=== PATIENT | female | born 1985 ===

== ENCOUNTER 2016-12-31 09:54 | Emergency (ER) | payer OTHER ==
[2016-12-31 10:22] VITALS: BMI 28.3
--- NOTE | 2016-12-31 10:34 | ED PDOC ---
Arrival/HPI - General Historian: Patient - General Chief Complaint: Abdominal Pain Time Seen by Provider: 12/31/16 10:29 - History of Present Illness Narrative History of Present Illness (Text): 12/31/16 10:30 31 y/o female, pmh including pylonephritis, nkda, c/o epigastric abdominal pain x 3-4 days. Aching and burning pain, feels nauseous, last bowel movement was this morning, no vomiting, pain radiating to the rt. upper quadrant region, no night sweat, no urinary symptoms, no hematuria, no dizziness, no chest pain or shortness of breath, no other medical or psychological complaints. (Sanford Negrete) Past Medical History - Provider Review Nursing Documentation Reviewed: Yes - Infectious Disease Hx of Infectious Diseases: None - Tetanus Immunization Tetanus Immunization: Unknown - Cardiac Hx Cardiac Disorders: No - Pulmonary Hx Respiratory Disorders: No - Neurological Hx Neurological Disorder: No - HEENT Hx HEENT Disorder: No - Renal Hx Renal Disorder: Yes Hx Kidney Stones: Yes - Endocrine/Metabolic Hx Endocrine Disorders: No - Hematological/Oncological Hx Blood Disorders: No - Integumentary Hx Dermatological Disorder: No - Musculoskeletal/Rheumatological Hx Musculoskeletal Disorders: No - Gastrointestinal Hx Gastrointestinal Disorders: No - Genitourinary/Gynecological Hx Genitourinary Disorders: Yes Hx Urinary Tract Infection: Yes Other/Comment: Kidney Infection 3 years ago - Psychiatric Hx Psychophysiologic Disorder: No Hx Depression: No Hx Emotional Abuse: No Hx Physical Abuse: No Hx Substance Use: No - Past Surgical History Past Surgical History: No Previous - Surgical History Hx Tubal Ligation: Yes - Suicidal Assessment Feels Threatened In Home Enviroment: No Family/Social History - Physician Review Nursing Documentation Reviewed: Yes Family/Social History: Unknown Family HX Smoking Status: Never Smoked Hx Alcohol Use: No (social) Hx Substance Use: No Hx Substance Use Treatment: No Allergies/Home Meds Allergies/Adverse Reactions: Allergies No Known Allergies Allergy (Verified 06/12/16 17:01) Home Medications: Home Meds Medication Instructions Recorded Confirmed Hyoscyamine [Hyoscyamine Sulfate] 0.125 mg PO Q4H 12/31/16 12/31/16 Review of Systems - Review of Systems Constitutional: absent: Fatigue, Fevers Eyes: absent: Vision Changes ENT: absent: Hearing Changes Respiratory: absent: SOB, Cough Cardiovascular: absent: Chest Pain Gastrointestinal: Abdominal Pain, Nausea. absent: Diarrhea, Vomiting Musculoskeletal: absent: Arthralgias, Back Pain, Neck Pain, Joint Swelling, Myalgias Neurological: absent: Headache, Dizziness, Focal Weakness Psychiatric: absent: Anxiety, Depression, Suicidal Ideation Physical Exam Vital Signs Reviewed: Yes Temperature: Afebrile Blood Pressure: Normal Pulse: Regular Respiratory Rate: Normal Appearance: Positive for: Well-Appearing, Non-Toxic, Comfortable Pain Distress: Moderate Mental Status: Positive for: Alert and Oriented X 3 - Systems Exam Head: Present: Atraumatic, Normocephalic Pupils: Present: PERRL Extroacular Muscles: Present: EOMI Conjunctiva: Present: Normal Mouth: Present: Moist Mucous Membranes Neck: Present: Normal Range of Motion Respiratory/Chest: Present: Clear to Auscultation, Good Air Exchange. No: Respiratory Distress, Accessory Muscle Use Cardiovascular: Present: Regular Rate and Rhythm, Normal S1, S2. No: Murmurs Abdomen: Present: Tenderness (+epigastric tenderness, no cva tenderness), Normal Bowel Sounds. No: Distention, Peritoneal Signs Back: Present: Normal Inspection Upper Extremity: Present: Normal Inspection. No: Cyanosis, Edema Lower Extremity: Present: Normal Inspection. No: Edema Neurological: Present: GCS=15, Speech Normal, Motor Func Grossly Intact, Gait Normal, Memory Normal Skin: Present: Warm, Dry, Normal Color. No: Rashes Psychiatric: Present: Alert, Oriented x 3, Normal Insight, Normal Concentration Vital Signs Temp Pulse Resp BP Pulse Ox 12/31/16 10:21 98.4 F 65 20 137/92 H 100 Medical Decision Making - Lab Interpretations I have reviewed the lab results: Yes Interpretation: Abnormal lab values (+UTI) ED Course and Treatment: I was available for consultation during PA evaluation. The chart reviewed by me , and I agree with disposition. The documented history was done by the physician engineering project manager. The documented physical exam was done by the physician engineering project manager. The documented procedures were done by the physician engineering project manager. (Nadeem Powers) 12/31/16 10:38 -labs/ua/lipase -Abdominal sonogram performed 4 days ago show there is fatty liver with no gallstone or renal stone. -IVF/pepcid/zofran -Observe and reassess 12/31/16 12:41 -Labs are non-significant -Urinalysis show +UTI, IV rocephine ordered. -Pt. feels comfortable and better. -Discharge home with keflex, pepcid, zofran, stay hydrated, follow up with your own pmd and urologist within 2 days, return to the ER for any new or worsening signs or symptoms. (Sanford Negrete) - Lab Interpretations Lab Results: 12/31/16 11:30 12/31/16 11:30 Lab Results 12/31/16 11:30: Urine Color Yellow, Urine Appearance Sl cloudy, Urine pH 6.0, Ur Specific [place] 1.025, Urine Protein Negative, Urine Glucose (UA) Negative, Urine Ketones Negative, Urine Blood Negative, Urine Nitrate Negative, Urine Bilirubin Negative, Urine Urobilinogen 0.2, Ur Leukocyte Esterase Moderate H, Urine RBC Negative, Urine WBC 5 - 10, Ur Epithelial Cells 10 - 12, Urine Bacteria Few 12/31/16 11:30: Sodium 141, Potassium 4.0, Chloride 106, Carbon Dioxide 28, Anion Gap 11, BUN 12, Creatinine 0.6, Est GFR ( Amer) > 60, Est GFR (Non- Af Amer) > 60, Random Glucose 97, Calcium 9.3, Total Bilirubin 1.0, AST 36, ALT 44, Alkaline Phosphatase 72, Total Protein 7.9, Albumin 4.5, Globulin 3.5, Albumin/Globulin Ratio 1.3, Lipase 78 12/31/16 11:30: WBC 6.3, RBC 4.30, Hgb 13.4, Hct 38.3, MCV 89.1, MCH 31.2, MCHC 35.0, RDW 12.8, Plt Count 257, MPV 10.8, Gran % 57.0, Lymph % (Auto) 31.8, [place] % (Auto) 6.1 H, Eos % (Auto) 4.5, Baso % (Auto) 0.6, Gran # 3.58, Lymph # 2.0, [place] # 0.4, Eos # 0.3, Baso # 0.04 - Medication Orders Current Medication Orders: Ceftriaxone Sodium (Rocephin 1 Gram Ivpb) 1 gm in 100 mls @ 200 mls/hr IVPB STAT STA PRN Reason: Protocol Stop: 12/31/16 13:05 Discontinued Medications Famotidine (Pepcid) 20 mg IVP STAT STA Stop: 12/31/16 10:36 Last Admin: 12/31/16 11:20 Dose: 20 mg Sodium Chloride (Sodium Chloride 0.9%) 1,000 mls @ 999 mls/hr IV .Q1H1M STA Stop: 12/31/16 11:35 Last Admin: 12/31/16 11:00 Dose: 999 mls/hr Ondansetron HCl (Zofran Inj) 4 mg IVP STAT STA Stop: 12/31/16 10:36 Last Admin: 12/31/16 11:15 Dose: 4 mg - PA / RADIO MAINTAINER / Resident Statement /DO has reviewed & agrees with the documentation as recorded. Disposition/Present on Arrival - Present on Arrival Any Indicators Present on Arrival: No History of DVT/PE: No History of Uncontrolled Diabetes: No Urinary Catheter: No History of Decub. Ulcer: No History Surgical Site Infection Following: None - Disposition Have Diagnosis and Disposition been Completed?: Yes Disposition Time: 12:43 Patient Plan: Discharge - Disposition Diagnosis: UTI (urinary tract infection), Gastritis Disposition: HOME/ ROUTINE Condition: IMPROVED Additional Instructions: Discharge home with keflex, pepcid, zofran, stay hydrated, follow up with your own pmd and urologist within 2 days, return to the ER for any new or worsening signs or symptoms. Prescriptions: Cephalexin [cephalexin] 500 mg PO QID #28 cap Famotidine [Pepcid] 20 mg PO BID #14 tab Ondansetron [Zofran] 4 mg PO Q8H PRN #6 tab PRN Reason: Other Referrals: Chery Forrest [Primary Care Provider] - Follow up with primary Sung Lepe MD [Staff Provider] - Follow up with primary Forms: WORK NOTE
[2016-12-31] MEDS ORDERED: Sodium Chloride 0.9% 1,000 ML IV STA (10:35)
[2016-12-31 11:58] LABS: ADD MANUAL DIFF? NO
[2016-12-31 12:11] LABS: ALB/GLOB RATIO 1.3 (1.1-1.8); ALKALINE PHOSPHATASE 72 U/L (38-133); ALT/SGPT 44 U/L (7-56); AST/SGOT 36 U/L (15-39); BLOOD UREA NITROGEN 12 mg/dL (7-21); CALCIUM 9.3 mg/dL (8.4-10.5); CARBON DIOXIDE 28 mmol/L (21-33); CHLORIDE 106 mmol/L (95-110); GFR AFRICAN-AMERICAN > 60; GLUCOSE,RANDOM 97 mg/dL (70-110); LIPASE 78 U/L (23-300); SODIUM 141 mmol/L (132-148); TOTAL PROTEIN 7.9 g/dL (5.8-8.3)
[2016-12-31 12:13] LABS: BASO # 0.04 K/mm3 (0.0-2.0); BASO % 0.6 % (0.0-3.0); EOS # 0.3 (0.0-0.7); EOS % 4.5 % (1.5-5.0); GRAN # 3.58 (1.4-6.5); HEMATOCRIT 38.3 % (36.0-48.0); LYMPH % 31.8 % (22.0-35.0); MEAN CELL VOLUME 89.1 fL (80.0-105.0); MEAN CORPUSCULAR HEMOGLOBIN 31.2 pg (25.0-35.0); MEAN PLATELET VOLUME 10.8 fl (7.0-11.0); MONO # 0.4 (0.1-0.6); MONO % 6.1 % (1.0-6.0); PLATELET COUNT 257 10^3/uL (120.0-450.0); RED CELL DISTRIBUTION WIDTH 12.8 % (11.5-14.5); URINE BILIRUBIN NEGATIVE (NEGATIVE); URINE BLOOD NEGATIVE (NEGATIVE); URINE GLUCOSE (UA) NEGATIVE (NEGATIVE); URINE KETONE NEGATIVE (NEGATIVE); URINE LEUKOCYTE ESTERASE MODERATE Leu/uL (NEGATIVE); URINE PROTEIN NEGATIVE mg/dL (<30 mg/dL); URINE UROBILINOGEN 0.2 E.U./dL (<1 E.U./dL); WHITE BLOOD COUNT 6.3 10^3/ul (4.5-11.0)
[2016-12-31 12:14] LABS: URINE APPEARANCE SL CLOUDY (CLEAR); URINE COLOR YELLOW (YELLOW)
[2016-12-31 12:18] LABS: URINE BACTERIA FEW (NEG); URINE RBC NEGATIVE /hpf (0-2)
[2016-12-31] MEDS ORDERED: cefTRIAXone 1 gm 1 GM/100 ML BAG IVPB STA (12:36)
[2016-12-31 13:55] VITALS: TEMP 98
[2016-12-31 14:01] VITALS: BP 118/75; PULSE 80; RESP 16; O2SAT 99
== END 2016-12-31 13:38 | disposition home or self-care (01) ==
LOC: ED 09:54
DX: K29.70 Gastritis, unspecified, without bleeding (principal); N39.0 Urinary tract infection, site not specified
CPT/HCPCS: 80053; 81001; 83690; 84703; 85025; 87086; 96361; 96365; 96375; 99284; J0696; J2405; J7040

== ENCOUNTER 2017-03-06 06:07 | Day surgery (SDC) | payer OTHER ==
[2017-03-06 06:07] VITALS: BMI 28.3
[2017-03-06] MEDS ORDERED: Sodium Chloride 0.9% 1,000 ML IV STA (07:34)
--- NOTE | 2017-03-06 07:38 | ED PDOC ---
Arrival/HPI - History of Present Illness Time/Duration: 4-6 hours Symptom Onset: Sudden Symptom Course: Unchanged Quality: Cramping - General Chief Complaint: Abdominal Pain Time Seen by Provider: 03/06/17 07:07 - History of Present Illness Narrative History of Present Illness (Text): 03/06/17 07:35 31 year old female with hx of nephrolithiasis presents for diffuse abdominal pain that began about 7 hours ago. Pain began all of a sudden at night. Patient describes pain at a crampy pain 10/10. Pain is associated with N & V. Patient has 2 bilious vomitus. Patient denies having any D/C, dysuria, hematuria, vaginal discharge, foul vaginal odor, F/C. Patient was seen in ED about 2 months ago for UTI. she was treated with Rocephin and Keflex. Patient states that she had one abnormal pap smear this year but does not recall the diagnosis. Denies having any Hx of STDs. She is currently sexually active with one partner. LMP 02/14. (Tish Ordoñez) Past Medical History - Provider Review Nursing Documentation Reviewed: Yes - Infectious Disease Hx of Infectious Diseases: None - Tetanus Immunization Tetanus Immunization: Unknown - Cardiac Hx Cardiac Disorders: No - Pulmonary Hx Respiratory Disorders: No - Neurological Hx Neurological Disorder: No - HEENT Hx HEENT Disorder: No - Renal Hx Renal Disorder: Yes Hx Kidney Stones: Yes - Endocrine/Metabolic Hx Endocrine Disorders: No - Hematological/Oncological Hx Blood Disorders: No - Integumentary Hx Dermatological Disorder: No - Musculoskeletal/Rheumatological Hx Musculoskeletal Disorders: No - Gastrointestinal Hx Gastrointestinal Disorders: No - Genitourinary/Gynecological Hx Genitourinary Disorders: Yes Hx Urinary Tract Infection: Yes Other/Comment: Kidney Infection 3 years ago - Psychiatric Hx Psychophysiologic Disorder: No Hx Depression: No Hx Emotional Abuse: No Hx Physical Abuse: No Hx Substance Use: No - Past Surgical History Past Surgical History: No Previous - Surgical History Hx Tubal Ligation: Yes - Suicidal Assessment Feels Threatened In Home Enviroment: No Family/Social History - Physician Review Nursing Documentation Reviewed: Yes Family/Social History: Unknown Family HX Smoking Status: Never Smoked Hx Alcohol Use: No (social) Hx Substance Use: No Hx Substance Use Treatment: No Allergies/Home Meds Allergies/Adverse Reactions: Allergies No Known Allergies Allergy (Verified 03/06/17 07:30) Home Medications: Home Meds Medication Instructions Recorded Confirmed No Known Home Med 03/06/17 03/06/17 Review of Systems - Review of Systems Constitutional: Normal. absent: Fatigue, Fevers ENT: Normal. absent: Sore Throat, Rhinorrhea Respiratory: Normal. absent: SOB, Cough, Sputum, Wheezing Cardiovascular: Normal. absent: Chest Pain, Palpitations, Calf Pain Gastrointestinal: Abdominal Pain, Nausea, Vomiting. absent: Constipation, Diarrhea Genitourinary Female: Frequency. absent: Dysuria, Vaginal Bleeding, Vaginal Discharge Musculoskeletal: Normal. absent: Arthralgias, Back Pain, Neck Pain Skin: Normal. absent: Rash, Pruritis, Skin Lesions, Laceration Neurological: Normal. absent: Headache, Dizziness, Facial Droop Endocrine: Normal. absent: Diaphoresis Hemo/Lymphatic: Normal. absent: Adenopathy, Easy Bleeding Physical Exam Vital Signs Reviewed: Yes Temperature: Afebrile Blood Pressure: Hypertensive Pulse: Regular Respiratory Rate: Normal Appearance: Positive for: Uncomfortable Pain Distress: Moderate Mental Status: Positive for: Alert and Oriented X 3 - Systems Exam Head: Present: Atraumatic, Normocephalic Mouth: Present: Dry Neck: Present: Normal Range of Motion. No: Meningeal Signs, MIDLINE TENDERNESS Respiratory/Chest: Present: Clear to Auscultation, Good Air Exchange. No: Respiratory Distress, Accessory Muscle Use, Wheezes, Rales, Rhonchi Cardiovascular: Present: Regular Rate and Rhythm, Normal S1, S2. No: Murmurs, Rub, Gallop, Muffled Abdomen: Present: Tenderness (periumbilical ), Normal Bowel Sounds. No: Distention, Peritoneal Signs, Rebound, Guarding Genitourinary/Pelvic Exam: Present: Normal External Genitalia, Other (performed with SHEMAR Rooney as swim coach ). No: Vaginal Discharge, Vaginal Bleeding, Vaginal Lesions, Adenexal Tenderness, Adenexal Mass, Cervical Motion Tendernes, Odor Lower Extremity: Present: NORMAL PULSES. No: Edema, CALF TENDERNESS Neurological: Present: GCS=15, Speech Normal. No: CN II-XII Intact Skin: Present: Warm, Dry, Normal Color. No: Rashes Psychiatric: Present: Alert, Oriented x 3, Normal Insight, Normal Concentration Medical Decision Making - Lab Interpretations I have reviewed the lab results: Yes ED Course and Treatment: 03/06/17 07:47 31 year old female presents for abdominal pain. DDx includes: appendicitis vs. pancreatitis vs. PUD vs. ovarian torsion vs. tubo-ovarian abscess vs. colitis Baker score is 4 which makes it unlikely to be appendicitis Will check: CBC CMP Lipase UA, urine culture pelvic exam CT abd/pelvis with IV contrast Patient will be given: NS bolus, Zofran and toradol 03/06/17 08:00 03/06/17 08:08 Pelvic exam performed with RN Nevin in the room. Negative pelvic exam. 03/06/17 10:[address] Chester spoke with finance vice president. Dr. Espinoza is paged. Patient will be given stat dose of Zosyn and started on NS 100 cc. 03/06/17 10:27 Patient will be admitted under Dr. Espinoza's service. (Tish Ordoñez) 03/06/17 10:45 Patient Seen With Resident: In agreement with resident note which contains more details about the patient. Patient was seen and evaluated with resident. Came up with plan and treatment together.. Abdominal exam: periumbilical and RLQ tenderness. Pelvic exam by Resident Dr. Ordoñez was normal CT reviewed and was positive for Appendicitis. Director Of Primary Dr. Acosta came to examine the patient and reviewed the case with Dr. Espinoza. Case will be taken to the OR by Dr. Espinoza and admitted to his service, (Juan R Chester) - Lab Interpretations Narrative Lab Interpretation (Text): 03/06/17 08:52 CBC normal, CMP, UA normal (Tish Ordoñez) Lab Results: 03/06/17 08:00 03/06/17 08:00 Lab Results 03/06/17 08:00: Sodium 140, Potassium 3.9, Chloride 103, Carbon Dioxide 25, Anion Gap 16, BUN 10, Creatinine 0.5, Est GFR ( Amer) > 60, Est GFR (Non- Af Amer) > 60, Random Glucose 111 H, Calcium 9.4, Total Bilirubin 0.5, AST 48 H , ALT 54, Alkaline Phosphatase 81, Total Protein 8.1, Albumin 4.6, Globulin 3.5 , Albumin/Globulin Ratio 1.3, Lipase 75 03/06/17 08:00: Urine Color Yellow, Urine Appearance Clear, Urine pH 6.0, Ur Specific [place] >= 1.030, Urine Protein Negative, Urine Glucose (UA) Negative, Urine Ketones Negative, Urine Blood Negative, Urine Nitrate Negative, Urine Bilirubin Negative, Urine Urobilinogen 0.2, Ur Leukocyte Esterase Negative, Urine HCG, Qual Negative 03/06/17 08:00: WBC 8.3 D, RBC 4.30, Hgb 13.5, Hct 37.3, MCV 86.7, MCH 31.4, MCHC 36.2, RDW 12.8, Plt Count 238, MPV 10.4 - RAD Interpretation Narrative RAD Interpretations (Text): 03/06/17 09:[address] Walter about Ct results which shows early onset appendicitis. ( Smita,Tish) Radiology Orders: 03/06/17 07:43 ABD & PELVIS IV CONTRAST ONLY [CT] Stat - Medication Orders Current Medication Orders: Acetaminophen (Tylenol 325mg Tab) 650 mg PO Q6 PRN PRN Reason: Fever >100.4 F Sodium Chloride (Sodium Chloride 0.9%) 1,000 mls @ 100 mls/hr IV .Q10H [place] Last Admin: 03/06/17 10:28 Dose: 100 mls/hr Morphine Sulfate (Morphine) 4 mg IVP Q4H PRN PRN Reason: Pain, moderate (4-7) Ondansetron HCl (Zofran Inj) 4 mg IVP Q4 PRN PRN Reason: Nausea/Vomiting Discontinued Medications Sodium Chloride (Sodium Chloride 0.9%) 1,000 mls @ 999 mls/hr IV .Q1H1M STA Stop: 03/06/17 08:34 Last Admin: 03/06/17 07:59 Dose: 999 mls/hr Piperacillin Sod/Tazobactam Sod (Zosyn 3.375 In Ns 100ml) 100 mls @ 200 mls/hr IVPB STAT STA PRN Reason: Protocol Stop: 03/06/17 10:31 Last Admin: 03/06/17 10:28 Dose: 200 mls/hr Iohexol (Omnipaque 350 100 Ml) Confirm Administered Dose 350 mg .ROUTE .STK-MED ONE Stop: 03/06/17 08:37 Ketorolac Tromethamine (Toradol) 30 mg IVP STAT STA Stop: 03/06/17 07:54 Last Admin: 03/06/17 07:58 Dose: 30 mg Ondansetron HCl (Zofran Inj) 4 mg IVP STAT STA Stop: 03/06/17 07:35 Last Admin: 03/06/17 07:59 Dose: 4 mg Disposition/Present on Arrival - Present on Arrival Any Indicators Present on Arrival: No History of DVT/PE: No History of Uncontrolled Diabetes: No Urinary Catheter: No History of Decub. Ulcer: No History Surgical Site Infection Following: None - Disposition Have Diagnosis and Disposition been Completed?: Yes Disposition Time: 10:17 Patient Plan: Admission - Disposition Diagnosis: Appendicitis Disposition: HOSPITALIZED Patient Problems: Current Active Problems Problem Status Onset Appendicitis Acute Condition: STABLE
[2017-03-06 08:10] LABS: HEMOGLOBIN 13.5 g/dL (12.0-16.0); MEAN CELL VOLUME 86.7 fl (80.0-105.0); MEAN CORPUSCULAR HEMOGLOBIN 31.4 pg (25.0-35.0); MEAN CORPUSCULAR HGB CONC 36.2 g/dl (31.0-37.0); MEAN PLATELET VOLUME 10.4 fl (7.0-11.0); RBC 4.3 10^6/uL (3.5-6.1); RED CELL DISTRIBUTION WIDTH 12.8 % (11.5-14.5); WHITE BLOOD COUNT 8.3 10^3/ul (4.5-11.0)
[2017-03-06 08:13] LABS: URINE BILIRUBIN NEGATIVE (NEGATIVE); URINE BLOOD NEGATIVE (NEGATIVE); URINE GLUCOSE (UA) NEGATIVE (NEGATIVE); URINE LEUKOCYTE ESTERASE NEGATIVE Leu/uL (NEGATIVE); URINE NITRATE NEGATIVE (NEGATIVE); URINE PROTEIN NEGATIVE mg/dL (<30 mg/dL); URINE UROBILINOGEN 0.2 E.U./dL (<1 E.U./dL)
[2017-03-06 08:14] LABS: URINE APPEARANCE CLEAR (CLEAR); URINE COLOR YELLOW (YELLOW)
[2017-03-06 08:18] LABS: HCG,QUALITATIVE URINE NEGATIVE (NEGATIVE)
[2017-03-06 08:22] LABS: ALB/GLOB RATIO 1.3 (1.1-1.8); ALBUMIN 4.6 g/dL (3.0-4.8); ALT/SGPT 54 U/L (7-56); AST/SGOT 48 U/L (15-39); BLOOD UREA NITROGEN 10 mg/dL (7-21); CALCIUM 9.4 mg/dL (8.4-10.5); GFR AFRICAN-AMERICAN > 60; GFR NON-AFRICAN AMERICAN > 60; LIPASE 75 U/L (23-300)
[2017-03-06] MEDS ORDERED: Iohexol 350 MG/100 ML VIAL ONE (08:36)
[2017-03-06] MEDS ORDERED: Piperacillin/Tazobact 3.375 gm 100 ML IVPB STA (10:02)
--- NOTE | 2017-03-06 10:03 | CT ---
PROCEDURE: CT Abdomen and Pelvis with contrast HISTORY: abdominal pain COMPARISON: None. TECHNIQUE: Contrast dose: 100 cc of Omni 350 Radiation dose: Total exam DLP = 677 mGy-cm. This CT exam was performed using one or more of the following dose reduction techniques: Automated exposure control, adjustment of the mA and/or kV according to patient size, and/or use of iterative reconstruction technique. FINDINGS: LOWER THORAX: Unremarkable. LIVER: Unremarkable. No gross lesion or ductal dilatation. Mild fatty infiltration of the liver GALLBLADDER AND BILE DUCTS: Unremarkable. PANCREAS: Unremarkable. No gross lesion or ductal dilatation. SPLEEN: Unremarkable. ADRENALS: Unremarkable. No mass. KIDNEYS AND URETERS: Unremarkable. No hydronephrosis. No solid mass. VASCULATURE: Unremarkable. No aortic aneurysm. BOWEL: Unremarkable. No obstruction. No gross mural thickening. APPENDIX: The appendix is dilated to a diameter of 10 mm. There is enhancement of the wall of the appendix. Findings are consistent with early appendicitis. No evidence of perforation or abscess Findings were discussed with Dr. Ordoñez at 10 a.m. PERITONEUM: Unremarkable. No free fluid. No free air. LYMPH NODES: Unremarkable. No enlarged lymph nodes. BLADDER: Unremarkable. REPRODUCTIVE: Unremarkable. BONES: No acute fracture. OTHER FINDINGS: None. IMPRESSION: Early acute appendicitis
[2017-03-06] MEDS ORDERED: Sodium Chloride 0.9% 1,000 ML IV SCH (10:15)
[2017-03-06] MEDS ORDERED: Morphine 4 mg/ml ISec IVP PRN (10:55)
--- NOTE | 2017-03-06 10:55 | CP.PCM.HP ---
History of Present Illness - History of Present Illness History of Present Illness: Surgery: Dr. Espinoza CC: [place]-umbilical abdominal pain HPI: 33 yo F presenting with complaints of 1 day hx abdominal pain. The pt states that pain started last night around midnight. She denies any inciting factors. Nothing makes the pain better or worse. Pain is localized to her umbilical regions radiating circumferential to remaining abdominal quadrants. Associated symptoms include chills, nausea, and vomiting x32 this morning stomach contents. She denies fever but report chils. In the ED, pt reports that pain is mostly resolved after given pain meds. PMH: , PSH: tubal ligation Social: denies etoh, tobacco, or drug abuse All: NKDA Present on Admission - Present on Admission Any Indicators Present on Admission: No Review of Systems - Review of Systems All systems: reviewed and no additional remarkable complaints except Review of Systems: unless stated in HPI Past Patient History - Infectious Disease Hx of Infectious Diseases: None - Tetanus Immunizations Tetanus Immunization: Unknown - Past Social History Smoking Status: Never Smoked - CARDIAC Hx Cardiac Disorders: No - PULMONARY Hx Respiratory Disorders: No - NEUROLOGICAL Hx Neurological Disorder: No - HEENT Hx HEENT Problems: No - RENAL Hx Chronic Kidney Disease: Yes Hx Kidney Stones: Yes - ENDOCRINE/METABOLIC Hx Endocrine Disorders: No - HEMATOLOGICAL/ONCOLOGICAL Hx Blood Disorders: No - INTEGUMENTARY Hx Dermatological Problems: No - MUSCULOSKELETAL/RHEUMATOLOGICAL Hx Musculoskeletal Disorders: No - GASTROINTESTINAL Hx Gastrointestinal Disorders: No - GENITOURINARY/GYNECOLOGICAL Hx Genitourinary Disorders: Yes Hx Urinary Tract Infection: Yes Other/Comment: Kidney Infection 3 years ago - PSYCHIATRIC Hx Psychophysiologic Disorder: No Hx Depression: No Hx Emotional Abuse: No Hx Physical Abuse: No Hx Substance Use: No - SURGICAL HISTORY Hx Tubal Ligation: Yes Meds Allergies/Adverse Reactions: Allergies Allergy/AdvReac Type Severity Reaction Status Date / Time No Known Allergies Allergy Verified 03/06/17 07:30 Physical Exam - Constitutional Appears: Non-toxic, No Acute Distress - Head Exam Head Exam: ATRAUMATIC, NORMAL INSPECTION, NORMOCEPHALIC - Eye Exam Eye Exam: EOMI, Normal appearance. absent: Conjunctival injection, Scleral icterus - ENT Exam ENT Exam: Mucous Membranes Moist - Respiratory Exam Respiratory Exam: NORMAL BREATHING PATTERN. absent: Accessory Muscle Use, Respiratory Distress - Cardiovascular Exam Cardiovascular Exam: REGULAR RHYTHM, +S1, +S2 Additional comments: No pretibial edema. DP pulses 2+ equal bilaterally. - GI/Abdominal Exam GI & Abdominal Exam: Soft, Tenderness (Mild tenderness to palpation in RUQ. pressure in RLQ ). absent: Distended, Rigid Additional comments: Negative heel tap. - Neurological Exam Neurological exam: Alert, Oriented x3 - Psychiatric Exam Psychiatric exam: Normal Affect, Normal Mood - Skin Skin Exam: Dry, Normal Color, Warm Results - Vital Signs Recent Vital Signs: Last Vital Signs Temp 97.7 F 03/06/17 07:26 Pulse 64 03/06/17 10:00 Resp 18 03/06/17 10:00 BP 134/88 03/06/17 10:00 Pulse Ox 98 03/06/17 10:00 - Labs Result Diagrams: 03/06/17 08:00 03/06/17 08:00 - Impressions Impression: CT w/ dilated appendix measuring over 9mm in greatest diameter w/ wall thickening suggestive of early appendicitis Assessment & Plan - Assessment and Plan (Free Text) Assessment: 31 yo F with acute appendicitis -Plan for OR today - Pt consent for surgery and anesthesia completed at bedside. ED Nurse Senia assisted in completion of consent in Korean. -NPO -IVFs -Morphine for pain control -Zofran prn for n/v -Perioperative antibiotics -discussed w/ Dr. Alexis Burnette PGY3
[2017-03-06] MEDS ORDERED: Lactated Ringer's 1,000 ML IV SCH (11:37)
[2017-03-06] MEDS ORDERED: HYDROmorphone 0.5 mg/0.5 ml ISec IVP PRN (11:37)
[2017-03-06] MEDS ORDERED: Bupivacaine 0.5% Inj(30mL) ONE (15:17)
[2017-03-06] MEDS ORDERED: Propofol 10 mg/ml Inj (20 ML) ONE ×2 (15:52→17:45)
[2017-03-06] MEDS ORDERED: Midazolam 2 MG/2 ML VIAL ONE (15:53)
[2017-03-06] MEDS ORDERED: Glycopyrrolate 0.2 mg/ml (2ml vial) ONE (15:53)
[2017-03-06] MEDS ORDERED: Rocuronium 10 mg/ml (5 ml) ONE (15:53)
[2017-03-06] MEDS ORDERED: Neostigmine Methylsulfate 3mg/3ml Syringe IV ONE (15:54)
--- NOTE | 2017-03-06 18:10 | PCM.SURG1 ---
Surgeon's Initial Post Op Note - Surgeon's Notes Surgeon: Dr. Espinoza Alley Worker: Dr. Acosta, Dr. Pedroza Type of Anesthesia: General Endo, Local Pre-Operative Diagnosis: acute appendicitis Operative Findings: see op report Post-Operative Diagnosis: same Operation Performed: laparoscopic appendectomy Specimen/Specimens Removed: appendix Estimated Blood Loss: EBL {In ML}: 25 Blood Products Given: N/A Drains Used: No Drains Post-Op Condition: Good Date of Surgery/Procedure: 03/06/17 Time of Surgery/Procedure: 18:10
[2017-03-06] MEDS ORDERED: Oxycodone/Acetaminophen 5/325 mg Tab PO PRN (18:13)
[2017-03-06] MEDS ORDERED: HYDROmorphone 0.5 mg/0.5 ml ISec ONE (18:43)
[2017-03-06] MEDS: Morphine 4 mg/ml ISec IVP PRN (20:46)
[2017-03-06] MEDS: metroNIDAZOLE IV 250mg/50 ml 250 MG/50 ML BAG IVPB SCH (23:06)
[2017-03-07] MEDS: Morphine 4 mg/ml ISec IVP PRN (00:49)
[2017-03-07] MEDS: metroNIDAZOLE IV 250mg/50 ml 250 MG/50 ML BAG IVPB SCH (05:59)
--- NOTE | 2017-03-07 07:25 | CP.PCM.PN ---
Subjective - Date & Time of Evaluation Date of Evaluation: 03/07/17 Time of Evaluation: 06:45 - Subjective Subjective: Surgery Progress Note Dr. Espinoza Patient is a 31 F s/p Lap appendectomy. Patient was seen and examined at bedside in no acute distress. Patient has no acute complaints at this time. She states that she wasn't able to sleep well due to discomfort and soreness. Patient also admits to acid reflux. States she has an appetite; has not made any bowel movements, but has urinated. Patient denies presence of abdominal pain which was present prior to surgery, also denies n/v/d, headache, chest pain , shortness of breath. Objective - Vital Signs/Intake and Output Vital Signs (last 24 hours): Temp Pulse Resp BP Pulse Ox 97.8 F 80 18 122/86 99 03/06/17 23:26 03/06/17 23:26 03/06/17 23:26 03/06/17 23:26 03/06/17 19:24 Intake and Output: 03/07/17 03/07/17 06:59 18:59 Intake Total 1260 Output Total 0 Balance 1260 - Medications Medications: Current Medications Acetaminophen (Tylenol 325mg Tab) 650 mg PO Q6 PRN PRN Reason: Fever >100.4 F Sodium Chloride (Sodium Chloride 0.9%) 1,000 mls @ 100 mls/hr IV .Q10H [facility] Last Admin: 03/06/17 10:28 Dose: 100 mls/hr Ceftriaxone Sodium (Rocephin 1 Gram Ivpb) 1 gm in 100 mls @ 100 mls/hr IVPB DAILY [place] PRN Reason: Protocol Stop: 03/08/17 10:59 Morphine Sulfate (Morphine) 4 mg IVP Q4H PRN PRN Reason: Pain, severe (8-10) Last Admin: 03/07/17 00:49 Dose: 4 mg Ondansetron HCl (Zofran Inj) 4 mg IVP Q4 PRN PRN Reason: Nausea/Vomiting Oxycodone/Acetaminophen (Percocet 5/325 Mg Tab) 1 tab PO Q4H PRN PRN Reason: Pain, moderate (4-7) Stop: 03/09/17 18:14 - Labs Labs: 03/06/17 08:00 03/06/17 08:00 - Constitutional Appears: Well - Head Exam Head Exam: ATRAUMATIC, NORMAL INSPECTION, NORMOCEPHALIC - ENT Exam ENT Exam: Mucous Membranes Moist, Normal Exam - Respiratory Exam Respiratory Exam: Clear to Ausculation Bilateral, NORMAL BREATHING PATTERN - Cardiovascular Exam Cardiovascular Exam: REGULAR RHYTHM, RRR, +S1, +S2 - GI/Abdominal Exam GI & Abdominal Exam: Soft, Normal Bowel Sounds Additional comments: no drainage noted from laparascopic incisions - Neurological Exam Neurological Exam: Alert, Awake, Oriented x3 - Skin Skin Exam: Normal Color, Warm Assessment and Plan - Assessment and Plan (Free Text) Plan: 31 year old female S/P lap appendectomy - Incisions healing well; no drainage noted - Continue to monitor labs - Advance diet - If patient continues to progress, D/C
[2017-03-07 08:22] LABS: BASO # 0.02 K/mm3 (0.0-2.0); BASO % 0.2 % (0.0-3.0); EOS # 0.1 (0.0-0.7); EOS % 0.7 % (1.5-5.0); GRAN # 6.66 (1.4-6.5); LYMPH # 1.8 (1.2-3.4); LYMPH % 19.7 % (22.0-35.0); MEAN CELL VOLUME 88.8 fl (80.0-105.0); MEAN CORPUSCULAR HEMOGLOBIN 30.5 pg (25.0-35.0); MEAN CORPUSCULAR HGB CONC 34.4 g/dl (31.0-37.0); MEAN PLATELET VOLUME 9.9 fl (7.0-11.0); MONO # 0.6 (0.1-0.6); MONO % 6.4 % (1.0-6.0); PLATELET COUNT 195 10^3/uL (120.0-450.0); RBC 3.67 10^6/uL (3.5-6.1); RED CELL DISTRIBUTION WIDTH 13.1 % (11.5-14.5); WHITE BLOOD COUNT 9.1 10^3/ul (4.5-11.0)
[2017-03-07 08:26] VITALS: BP 136/77; PULSE 72; RESP 20; TEMP 98.2; O2SAT 98
[2017-03-07 08:30] LABS: HEMOGLOBIN 11.2 g/dL (12.0-16.0)
[2017-03-07 08:32] LABS: ALB/GLOB RATIO 1.4 (1.1-1.8); ALBUMIN 3.7 g/dL (3.0-4.8); ALT/SGPT 43 U/L (7-56); AST/SGOT 41 U/L (15-39); BLOOD UREA NITROGEN 6 mg/dL (7-21); CALCIUM 8.4 mg/dL (8.4-10.5); GFR AFRICAN-AMERICAN > 60; GFR NON-AFRICAN AMERICAN > 60
[2017-03-07] MEDS ORDERED: Potassium Chloride 20 mEq ER Tab PO STA (09:51)
[2017-03-07] MEDS ORDERED: Pantoprazole 40 mg EC Tab PO ONE (09:57)
[2017-03-07] MEDS ORDERED: cefTRIAXone 1 gm 1 GM/100 ML BAG IVPB SCH (10:00)
--- NOTE | 2017-03-07 10:48 | CP.PCM.DIS ---
Provider - Provider Attending physician: Guille Espinoza MD Time Spent in preparation of Discharge (in minutes): 30 Diagnosis - Discharge Diagnosis (1) Appendicitis Status: Acute Priority: High Hospital Course - Lab Results Lab Results: Most Recent Lab Values WBC 9.1 10^3/ul (4.5-11.0) 03/07/17 08:00 RBC 3.67 10^6/uL (3.5-6.1) 03/07/17 08:00 Hgb 11.2 g/dL (12.0-16.0) L D 03/07/17 08:00 Hct 32.6 % (36.0-48.0) L 03/07/17 08:00 MCV 88.8 fl (80.0-105.0) 03/07/17 08:00 MCH 30.5 pg (25.0-35.0) 03/07/17 08:00 MCHC 34.4 g/dl (31.0-37.0) 03/07/17 08:00 RDW 13.1 % (11.5-14.5) 03/07/17 08:00 Plt Count 195 10^3/uL (120.0-450.0) 03/07/17 08:00 MPV 9.9 fl (7.0-11.0) 03/07/17 08:00 Gran % 73.0 % (50.0-68.0) H 03/07/17 08:00 Lymph % (Auto) 19.7 % (22.0-35.0) L 03/07/17 08:00 [place] % (Auto) 6.4 % (1.0-6.0) H 03/07/17 08:00 Eos % (Auto) 0.7 % (1.5-5.0) L 03/07/17 08:00 Baso % (Auto) 0.2 % (0.0-3.0) 03/07/17 08:00 Gran # 6.66 (1.4-6.5) H 03/07/17 08:00 Lymph # 1.8 (1.2-3.4) 03/07/17 08:00 [place] # 0.6 (0.1-0.6) 03/07/17 08:00 Eos # 0.1 (0.0-0.7) 03/07/17 08:00 Baso # 0.02 K/mm3 (0.0-2.0) 03/07/17 08:00 Sodium 138 mmol/L (132-148) 03/07/17 08:00 Potassium 3.3 mmol/L (3.6-5.0) L 03/07/17 08:00 Chloride 102 mmol/L (95-110) 03/07/17 08:00 Carbon Dioxide 28 mmol/L (21-33) 03/07/17 08:00 Anion Gap 11 (10-20) 03/07/17 08:00 BUN 6 mg/dL (7-21) L 03/07/17 08:00 Creatinine 0.5 mg/dL (0.5-1.4) 03/07/17 08:00 Est GFR ( Amer) > 60 03/07/17 08:00 Est GFR (Non-Af Amer) > 60 03/07/17 08:00 Random Glucose 98 mg/dL (70-110) 03/07/17 08:00 Calcium 8.4 mg/dL (8.4-10.5) 03/07/17 08:00 Total Bilirubin 0.7 mg/dL (0.2-1.3) 03/07/17 08:00 AST 41 U/L (15-39) H 03/07/17 08:00 ALT 43 U/L (7-56) 03/07/17 08:00 Alkaline Phosphatase 52 U/L (38-133) 03/07/17 08:00 Total Protein 6.4 g/dL (5.8-8.3) 03/07/17 08:00 Albumin 3.7 g/dL (3.0-4.8) 03/07/17 08:00 Globulin 2.7 gm/dL 03/07/17 08:00 Albumin/Globulin Ratio 1.4 (1.1-1.8) 03/07/17 08:00 Lipase 75 U/L (23-300) 03/06/17 08:00 Urine Color Yellow (YELLOW) 03/06/17 08:00 Urine Appearance Clear (CLEAR) 03/06/17 08:00 Urine pH 6.0 (4.7-8.0) 03/06/17 08:00 Ur Specific [place] >= 1.030 (1.005-1.035) 03/06/17 08:00 Urine Protein Negative mg/dL (<30 mg/dL) 03/06/17 08:00 Urine Glucose (UA) Negative mg/dL (NEGATIVE) 03/06/17 08:00 Urine Ketones Negative mg/dL (NEGATIVE) 03/06/17 08:00 Urine Blood Negative (NEGATIVE) 03/06/17 08:00 Urine Nitrate Negative (NEGATIVE) 03/06/17 08:00 Urine Bilirubin Negative (NEGATIVE) 03/06/17 08:00 Urine Urobilinogen 0.2 E.U./dL (<1 E.U./dL) 03/06/17 08:00 Ur Leukocyte Esterase Negative [place]/uL (NEGATIVE) 03/06/17 08:00 Urine HCG, Qual Negative (NEGATIVE) 03/06/17 08:00 - Hospital Course Hospital Course: Discharge Note for Surgery Dr. Espinoza Patient is a 31 F who presented to [facility] 03/[facility]17 with abdominal pain found to have acute appendicitis evidenced by CT abdomen. Lap appendectomy performed 03/06/17; s/p Lap appendectomy patient is doing well. Patient was seen and examined at bedside in no acute distress and without acute complaints. Patient admits to acid reflux for which she was given Protonix. Patient denies presence of abdominal pain which was present prior to surgery, also denies n/v/d , headache, chest pain, shortness of breath. Patient was found to be hypokalemic at 3.3. for which Kdur was given. During hospital course s/p surgery she stated she has an appetite; diet was advanced to regular; Patient will be discharged with PO Percocet. Discharge instructions and procedure was discussed thoroughly with patient, patient understand and agrees. Discharge Exam - Head Exam Head Exam: ATRAUMATIC, NORMAL INSPECTION, NORMOCEPHALIC - Eye Exam Eye Exam: EOMI, Normal appearance - ENT Exam ENT Exam: Mucous Membranes Moist, Normal Exam - Respiratory Exam Respiratory Exam: NORMAL BREATHING PATTERN, UNREMARKABLE. absent: Rhonchi, Wheezes - Cardiovascular Exam Cardiovascular Exam: REGULAR RHYTHM, RRR, +S1 - GI/Abdominal Exam GI & Abdominal Exam: Normal Bowel Sounds. absent: Distended, Guarding, Rebound Additional comments: laparoscopic surgical incisions reveal no drainage - Neurological Exam Neurological exam: Alert, Oriented x3 - Skin Skin Exam: Normal Color, Warm Discharge Plan - Discharge Medications Prescriptions: oxyCODONE/Acetaminophen [Percocet 5/325 mg Tab] 1 tab PO Q4H PRN #20 tab PRN Reason: Pain, Moderate (4-7) - Follow Up Plan Condition: STABLE Disposition: HOME/ ROUTINE Instructions: Oxycodone/Acetaminophen (By mouth), Appendicitis (DC), Laparoscopic Appendectomy (DC) Additional Instructions: Can shower. Do not bathe or submerge incisions in water/oceans/pools. No lifting greater than 10lbs until cleared by surgeon. Call Dr. Espinoza's office for f/u appointment in 1-2 weeks. Referrals: Guille Espinoza MD [Staff Provider] -
[2017-03-08] MEDS ORDERED: Pantoprazole 40 mg EC Tab PO SCH (06:00)
== END 2017-03-07 15:25 | disposition home or self-care (01) ==
LOC: ED 06:07 → UNDOADMIN 10:21 → ERH 10:21 → UNDOADMOB 10:28 → ERH 10:28 → SDS 11:26 → 3RNO 19:44 → SDS 03-07 15:25
PROVIDERS: ATTEND Surgery
DX: K35.80 Unspecified acute appendicitis (principal); K21.9 Gastro-esophageal reflux disease without esophagitis; E87.6 Hypokalemia; Z87.442 Personal history of urinary calculi; Z98.51 Tubal ligation status
CPT/HCPCS: 36415; 44970; 74177; 80053 ×2; 81003; 83690; 84703; 85025; 85027; 87086; 88304; 96361; 96365; 96375; 99285; J0696; J1170; J1885; J2001; J2250; J2270 ×2; J2405; J2543; J2704; J2710; J3010; J7040; J7120 ×2; Q9967

== ENCOUNTER 2017-03-16 15:13 | Emergency (ER) | payer OTHER ==
[2017-03-16 15:21] VITALS: BMI 28.7
--- NOTE | 2017-03-16 15:51 | ED PDOC ---
Arrival/HPI - General Historian: Patient - History of Present Illness Time/Duration: 24 hours Symptom Onset: Gradual Symptom Course: Worsening Context: Home <Tish Ordoñez - Last Filed: 03/16/17 20:57> <Adolfo Meléndezcheyanne - Last Filed: 03/22/17 10:26> - General Time Seen by Provider: 03/16/17 15:20 - History of Present Illness Narrative History of Present Illness (Text): 03/16/17 15:47 31 year old female with past medical history of appendicitis 9 days prior presents for abdominal pain at site of incision from surgery. Patient states that she has been having pain at incision sites since discharge. However, yesterday she noticed that she developed erythema around the umbilicus and some purulent discharge. Patient denies having any F/C, dysuria, C/D/N/V. Patient is tolerating diet. (Tish Ordoñez) Past Medical History - Provider Review Nursing Documentation Reviewed: Yes - Travel History Have you recently traveled outside [place] w/in the past 3 mons?: No - Infectious Disease Hx of Infectious Diseases: None - Tetanus Immunization Tetanus Immunization: Unknown - Cardiac Hx Cardiac Disorders: No - Pulmonary Hx Respiratory Disorders: No - Neurological Hx Neurological Disorder: No - HEENT Hx HEENT Disorder: No - Renal Hx Renal Disorder: Yes Hx Kidney Stones: Yes - Endocrine/Metabolic Hx Endocrine Disorders: No - Hematological/Oncological Hx Blood Disorders: No - Integumentary Hx Dermatological Disorder: No - Musculoskeletal/Rheumatological Hx Musculoskeletal Disorders: No Hx Falls: No - Gastrointestinal Hx Gastrointestinal Disorders: No - Genitourinary/Gynecological Hx Genitourinary Disorders: Yes Hx Urinary Tract Infection: Yes Other/Comment: Kidney Infection 3 years ago - Psychiatric Hx Psychophysiologic Disorder: No Hx Depression: No Hx Emotional Abuse: No Hx Physical Abuse: No Hx Substance Use: No - Past Surgical History Past Surgical History: No Previous - Surgical History Other/Comment: Tubal Ligation - Anesthesia Hx Anesthesia Reactions: No Hx Malignant Hyperthermia: No - Suicidal Assessment Feels Threatened In Home Enviroment: No <Tish Ordoñez - Last Filed: 03/16/17 20:57> Family/Social History - Physician Review Nursing Documentation Reviewed: Yes Family/Social History: Unknown Family HX Smoking Status: Never Smoked Hx Alcohol Use: No (social) Hx Substance Use: No Hx Substance Use Treatment: No <Tish Ordoñez - Last Filed: 03/16/17 20:57> Allergies/Home Meds <Amn Smitaa - Last Filed: 03/16/17 20:57> <Laura Meléndez - Last Filed: 03/22/17 10:26> Allergies/Adverse Reactions: Allergies No Known Allergies Allergy (Verified 03/19/17 10:32) Review of Systems - Review of Systems Constitutional: Normal. absent: Fatigue, Fevers Eyes: Normal ENT: Normal. absent: Sore Throat, Rhinorrhea, Sinus Congestion Respiratory: Normal. absent: SOB, Cough, Wheezing Cardiovascular: Normal. absent: Chest Pain, Palpitations, Edema Gastrointestinal: Normal. absent: Abdominal Pain, Constipation, Diarrhea, Nausea, Vomiting Genitourinary Female: Normal. absent: Dysuria, Frequency, Urine Output Changes Musculoskeletal: Normal. absent: Arthralgias, Back Pain, Neck Pain Skin: Cellulitis, Other Neurological: Normal. absent: Headache, Dizziness Endocrine: Normal. absent: Diaphoresis, Polyuria, Polydipsia Hemo/Lymphatic: Normal. absent: Adenopathy Psychiatric: Normal. absent: Anxiety, Depression <Smita,Tish - Last Filed: 03/16/17 20:57> Physical Exam Vital Signs Reviewed: Yes Temperature: Afebrile Blood Pressure: Normal Pulse: Regular Respiratory Rate: Normal Appearance: Positive for: Well-Appearing, Non-Toxic, Comfortable Pain Distress: Mild Mental Status: Positive for: Alert and Oriented X 3 - Systems Exam Head: Present: Atraumatic, Normocephalic Extroacular Muscles: Present: EOMI Mouth: Present: Moist Mucous Membranes Respiratory/Chest: Present: Clear to Auscultation, Good Air Exchange. No: Respiratory Distress, Accessory Muscle Use, Wheezes, Rales, Rhonchi Cardiovascular: Present: Regular Rate and Rhythm, Normal S1, S2. No: Murmurs, Rub, Gallop, Muffled Abdomen: Present: Tenderness, Normal Bowel Sounds. No: Distention, Peritoneal Signs, Rebound, Guarding Lower Extremity: Present: NORMAL PULSES, Normal ROM. No: Edema, CALF TENDERNESS Neurological: Present: GCS=15, CN II-XII Intact, Speech Normal Skin: Present: Warm, Dry, Hot, Other (erythema and warmth noted around umbilicus. no fluctuance noted ) Psychiatric: Present: Alert, Oriented x 3, Normal Insight, Normal Concentration <Karim,Tish - Last Filed: 03/16/17 20:57> Medical Decision Making - Lab Interpretations I have reviewed the lab results: Yes Interpretation: All labs normal <Kartan,Tish - Last Filed: 03/16/17 20:57> <Laura Meléndez - Last Filed: 03/22/17 10:26> ED Course and Treatment: 03/16/17 15:56 31 year old female presents for pain and erythema around incision site Will check CBC and CMP resident surgeon for Dr. Espinoza notified and will see patient. resident surgeon saw patient. Waiting to hear back from Dr. Espinoza 03/16/17 19:04 Dr. Espinoza was paged. Still waiting to hear back. Will do CT scan without contrast of abd/pelvis to rule out internal abcess 03/16/17 20:58 CT scan is unremarkable. Patient is told to follow up with Dr. Espinoza upon discharge. She is discharged on Keflex. (Karim,Tish) 03/16/17 16:37 Patient Seen With Resident: In agreement with resident note which contains more details about the patient. Patient was seen and evaluated with resident. Came up with plan and treatment together. Patient's prior ER visit and hospitalization reviewed. Patient with recent appendectomy. On exam she is comfortable, nontoxic appearing, afebrile. There is localized erythema at recent incision site but no fluctuance, pus or drainage. CT with no fluid collection noted. As erythema is localized with no fever or systemic sxs, will d/c with antibiotic and stressed need for close follow-up. Indications for return to ED reviewed. Patient evaluated by surgery team in ED. (Laura Meléndez) - Lab Interpretations Narrative Lab Interpretation (Text): 03/16/17 20:41 unremarkable CBC & CMP (Karim,Tish) Lab Results: 03/16/17 15:50 03/16/17 15:50 Lab Results 03/16/17 15:50: Sodium 143, Potassium 3.9, Chloride 106, Carbon Dioxide 25, Anion Gap 16, BUN 12, Creatinine 0.6, Est GFR ( Amer) > 60, Est GFR (Non- Af Amer) > 60, Random Glucose 101, Calcium 9.2, Total Bilirubin 0.4, AST 51 H, ALT 59 H, Alkaline Phosphatase 82, Total Protein 8.3, Albumin 4.7, Globulin 3.6 , Albumin/Globulin Ratio 1.3 03/16/17 15:50: WBC 7.7, RBC 4.23, Hgb 13.3 D, Hct 37.2, MCV 87.9, MCH 31.4, MCHC 35.8, RDW 13.0, Plt Count 279, MPV 10.1 - RAD Interpretation Radiology Orders: 03/16/17 19:03 ABD & PELVIS W/O PO OR IV CONT [CT] Stat <Tish Ordoñez - Last Filed: 03/16/17 20:57> - PA / SIGNAL PROCESSING ENGINEER / Resident Statement MD/DO has reviewed & agrees with the documentation as recorded. MD/DO has examined the patient and agrees with the treatment plan. - Scribe Statement The provider has reviewed the documentation as recorded by the Scribe <Laura Meléndez - Last Filed: 03/22/17 10:26> - Scribe Statement Naty Beltrán Provider Scribe Attestation: All medical record entries made by the Scribe were at my direction and personally dictated by me. I have reviewed the chart and agree that the record accurately reflects my personal performance of the history, physical exam, medical decision making, and the department course for this patient. I have also personally directed, reviewed, and agree with the discharge instructions and disposition. (Laura Meléndez) Disposition/Present on Arrival - Present on Arrival Any Indicators Present on Arrival: No History of DVT/PE: No History of Uncontrolled Diabetes: No Urinary Catheter: No History of Decub. Ulcer: No History Surgical Site Infection Following: None - Disposition Have Diagnosis and Disposition been Completed?: Yes Disposition Time: 20:42 Patient Plan: Discharge <Tish Ordoñez - Last Filed: 03/16/17 20:57> <Laura Meléndez - Last Filed: 03/22/17 10:26> - Disposition Diagnosis: Cellulitis Disposition: HOME/ ROUTINE Condition: GOOD Discharge Instructions (ExitCare): Cellulitis (ED) Additional Instructions: Alvina Palacios, thank you for letting us take care of you today. Your provider was Dr. Tish Ordoñez. You were treated for cellulitis. The emergency medical care you received today was directed at your acute symptoms. If you were prescribed any medication, please fill it and take as directed. It may take several days for your symptoms to resolve. Return to the Emergency Department if your symptoms worsen, do not improve, or if you have any other problems. Please contact your doctor or call one of the physicians/clinics you have been referred to that are listed on the Patient Visit Information form that is included in your discharge packet. Bring any paperwork you were given at discharge with you along with any medications you are taking to your follow up visit. Our treatment cannot replace ongoing medical care by a primary care provider (PCP) outside of the emergency department. Thank you for allowing the [facility] team to be part of your care today. If you had an X-Ray or CT scan: A Radiologist will review the ED reading if any change in treatment is needed we will contact you. If you had a blood, urine, or wound culture: It will take several days for the results, if any change in treatment is needed we will contact you. If you had an STI test: It will take 48 hours for the results. Please call after 1 week if you have not heard back. Prescriptions: Cephalexin [cephalexin] 500 mg PO QID #28 cap Referrals: PCP,NO [Primary Care Provider] - Follow up with primary Guille Espinoza MD [Staff Provider] - Follow up with primary Forms: [employer] (Kyrgyz)
[2017-03-16 16:10] LABS: HEMATOCRIT 37.2 % (36.0-48.0); MEAN CELL VOLUME 87.9 fl (80.0-105.0); MEAN CORPUSCULAR HEMOGLOBIN 31.4 pg (25.0-35.0); MEAN CORPUSCULAR HGB CONC 35.8 g/dl (31.0-37.0); MEAN PLATELET VOLUME 10.1 fl (7.0-11.0); WHITE BLOOD COUNT 7.7 10^3/ul (4.5-11.0)
[2017-03-16 16:18] LABS: ALB/GLOB RATIO 1.3 (1.1-1.8); ALKALINE PHOSPHATASE 82 U/L (38-133); ALT/SGPT 59 U/L (7-56); AST/SGOT 51 U/L (15-39); BILIRUBIN,TOTAL 0.4 mg/dL (0.2-1.3); BLOOD UREA NITROGEN 12 mg/dL (7-21); CALCIUM 9.2 mg/dL (8.4-10.5); CARBON DIOXIDE 25 mmol/L (21-33); GFR AFRICAN-AMERICAN > 60; GLUCOSE,RANDOM 101 mg/dL (70-110); POTASSIUM 3.9 mmol/L (3.6-5.0); SODIUM 143 mmol/L (132-148); TOTAL PROTEIN 8.3 g/dL (5.8-8.3)
[2017-03-16 16:20] LABS: CHLORIDE 106 mmol/L (98-107)
[2017-03-16 18:35] VITALS: BP 139/76; PULSE 70; RESP 18; TEMP 97.6; O2SAT 100
--- NOTE | 2017-03-16 20:50 | CT ---
EXAM: CT Abdomen and Pelvis Without Intravenous Contrast CLINICAL HISTORY: 31 years old, female; Pain; Abdominal pain; Prior surgery; Surgery type: Appenectomy - tubal ligation; Additional info: Abd cellulitis S/P appendicitis TECHNIQUE: Axial computed tomography images of the abdomen and pelvis without intravenous contrast. All CT scans at this facility use one or more dose reduction techniques, viz.: automated exposure control; ma/kV adjustment per patient size (including targeted exams where dose is matched to indication; i.e. head); or iterative reconstruction technique. Coronal and sagittal reformatted images were created and reviewed. COMPARISON: CT - ABD PELVIS IV CONTRAST ONLY 03/06/2017 9:10:05 AM FINDINGS: Limitations: Lack of intravenous contrast. Lower thorax: No acute findings. ABDOMEN: Liver: Fatty infiltration. Gallbladder and bile ducts: No calcified stones. No ductal dilation. Pancreas: Unremarkable. No ductal dilation. Spleen: No splenomegaly. Adrenals: No mass. Kidneys and ureters: No renal calculi. No hydronephrosis. Stomach and bowel: No definite mural thickening. No obstruction. Appendix: Appendectomy. PELVIS: Bladder: Unremarkable. No stones. Reproductive: 3.9 x 3.3 x 3.4 cm hypodense lesion within RIGHT ovary. ABDOMEN and PELVIS: Intraperitoneal space: Trace free fluid within pelvis. No free air. Bones/joints: No acute fracture. Soft tissues: Minimal focal stranding RIGHT anterior abdominal wall. No discrete fluid collection. Vasculature: Unremarkable. No aneurysm. Lymph nodes: No pathologically enlarged lymph nodes. IMPRESSION: 1. Probable RIGHT ovarian cyst. Consider ultrasound. 2. Incidental/non-acute findings are described above.
== END 2017-03-16 21:40 | disposition home or self-care (01) ==
LOC: ED 15:13
DX: L03.311 Cellulitis of abdominal wall (principal)

== ENCOUNTER 2017-03-19 10:28 | Emergency (ER) | payer OTHER ==
[2017-03-19 10:28] VITALS: BMI 28.7
[2017-03-19 10:37] VITALS: RESP 18; TEMP 97.9
--- NOTE | 2017-03-19 11:49 | ED PDOC ---
Arrival/HPI - General Chief Complaint: Medical Clearance Time Seen by Provider: 03/19/17 10:31 Historian: Patient - History of Present Illness Narrative History of Present Illness (Text): 03/19/17 11:30 Alvina Palacios is a 31 year old female who presents to the emergency department s/p appendectomy on on 03/06/17 for would check and follow- up. Patient states that she been treated outpatient for an infection to her umbilicus. Patient has no other complaints at this time. Time/Duration: < month Symptom Onset: Gradual Symptom Course: Unchanged Severity Level: Mild Activities at Onset: Light Context: Home Past Medical History - Provider Review Nursing Documentation Reviewed: Yes - Infectious Disease Hx of Infectious Diseases: None - Tetanus Immunization Tetanus Immunization: Unknown - Cardiac Hx Cardiac Disorders: No - Pulmonary Hx Respiratory Disorders: No - Neurological Hx Neurological Disorder: No - HEENT Hx HEENT Disorder: No - Renal Hx Renal Disorder: Yes Hx Kidney Stones: Yes - Endocrine/Metabolic Hx Endocrine Disorders: No - Hematological/Oncological Hx Blood Disorders: No - Integumentary Hx Dermatological Disorder: No - Musculoskeletal/Rheumatological Hx Musculoskeletal Disorders: No Hx Falls: No - Gastrointestinal Hx Gastrointestinal Disorders: No - Genitourinary/Gynecological Hx Genitourinary Disorders: Yes Hx Urinary Tract Infection: Yes Other/Comment: Kidney Infection 3 years ago - Psychiatric Hx Psychophysiologic Disorder: No Hx Depression: No Hx Emotional Abuse: No Hx Physical Abuse: No Hx Substance Use: No - Past Surgical History Past Surgical History: No Previous - Surgical History Hx Appendectomy: Yes Other/Comment: Tubal Ligation - Anesthesia Hx Anesthesia: Yes Hx Anesthesia Reactions: No Hx Malignant Hyperthermia: No - Suicidal Assessment Feels Threatened In Home Enviroment: No Family/Social History - Physician Review Nursing Documentation Reviewed: Yes Family/Social History: No Known Family HX Smoking Status: Never Smoked Hx Alcohol Use: No (social) Hx Substance Use: No Hx Substance Use Treatment: No Allergies/Home Meds Allergies/Adverse Reactions: Allergies No Known Allergies Allergy (Verified 03/19/17 10:32) Physical Exam - Physical Exam Narrative Physical Exam (Text): - Review of Systems Constitutional: Normal. absent: Fatigue, Weight Change, Fevers Eyes: Normal ENT: Normal Respiratory: Normal absent: SOB, Cough, Sputum Cardiovascular: Normal absent: Chest pain, Palpitations, Syncope Gastrointestinal: Normal absent: Abdominal pain, Diarrhea, Nausea, Vomiting Genitourinary: Normal. absent: Dysuria, Frequency, Hematuria Musculoskeletal: Normal. absent: Arthralgias, Back Pain, Neck Pain Skin: infection Neurological: Normal absent: Focal Weakness Endocrine: Normal Hemo/Lymphatic: Normal Psychiatric: Normal - Physical exam Patient appears age appropriate, speaking full sentences without difficulty. - Systems Exam Head: Present: Atraumatic, Normocephalic Pupils: Present: PERRL Extraocular Muscles: Present: EOMI Conjunctiva: Present: Normal Mouth: Present: Moist Mucous Membranes Neck: Present: Normal Range of Motion. No: MIDLINE TENDERNESS, Paraspinal Tenderness Respiratory/Chest: Present: Clear to Auscultation, Good Air Exchange. No: Respiratory Distress, Accessory Muscle Use, Tachypnic Cardiovascular: Present: Regular Rate and Rhythm, Normal S1, S2, Peripheral Pulses Present. No: Murmurs Abdomen: No significant tenderness to umbilicus. No fluctuance. No edema. No: Tenderness, Peritoneal Signs, Rebound, Guarding, Distention Back: Present: Normal Inspection. No: Midline Tenderness, Paraspinal Tenderness Upper Extremity: Present: Normal Inspection. No: Cyanosis, Edema Lower Extremity: Present: Normal Inspection. No: Edema Neurological: Present: GCS=15, Speech Normal, cranial nerves II through XII fully intact with no cerebellar abnormality, neuro-sensory fully intact. No focal neurological deficits. Skin: Present: Warm, Dry, Normal Color. No: Rashes Lymphatic: Present: OX3, NI, NC Psychiatric: Present: Alert, Oriented x 3, Normal Insight, Normal Concentration Vital Signs Reviewed: Yes Vital Signs Temp Pulse Resp BP Pulse Ox 03/19/17 10:35 97.9 F 88 18 116/77 98 Temperature: Afebrile Blood Pressure: Normal Pulse: Regular Respiratory Rate: Normal Appearance: Positive for: Well-Appearing, Non-Toxic, Comfortable Pain Distress: None Mental Status: Positive for: Alert and Oriented X 3 Medical Decision Making ED Course and Treatment: 03/19/17 11:30 Impression: 31 year old female presents s/p surgery on 03/06/17 for wound check and followup. Patient has also been treated outpatient for an infection to umbilicus. Plan: -- Page residential building inspector for evaluation -- Reassess and disposition Prior Visits: Notes and results from previous visits were reviewed. Patient last seen in the ED on 03/16/17 for abdominal pain at site of incision from surgery that day. Patient was discharged home. Progress Notes: 03/19/17 12:[address] Pedroza, residential building inspector states pt can be dc'd home and to cnt PO keflex pt in no distress aware of and agrees with plan Pt states she understands to return to the ER right away for new or worsening symptoms or for inability to f/u with PMD or specialist as instructed. Patient states that she fully agrees with and understands discharge instructions. States that she agrees with the plan and disposition. Verbalized and repeated discharge instructions and plan. I have given the patient opportunity to ask any additional questions. - Scribe Statement The provider has reviewed the documentation as recorded by the Ramez Alonso Provider Scribe Attestation: All medical record entries made by the Scribe were at my direction and personally dictated by me. I have reviewed the chart and agree that the record accurately reflects my personal performance of the history, physical exam, medical decision making, and the department course for this patient. I have also personally directed, reviewed, and agree with the discharge instructions and disposition. Disposition/Present on Arrival - Present on Arrival Any Indicators Present on Arrival: No History of DVT/PE: No History of Uncontrolled Diabetes: No Urinary Catheter: No History of Decub. Ulcer: No History Surgical Site Infection Following: None - Disposition Have Diagnosis and Disposition been Completed?: Yes Diagnosis: Visit for wound check Disposition: HOME/ ROUTINE Disposition Time: 12:33 Patient Plan: Discharge Patient Problems: Current Active Problems Problem Status Onset Visit for wound check Acute Condition: GOOD Discharge Instructions (ExitCare): Acute Wound Care (ED) Additional Instructions: PLEASE RETURN TO THE EMERGENCY DEPARTMENT FOR NEW OR WORSENING SYMPTOMS. RETURN RIGHT AWAY IF YOU CANNOT FOLLOW UP WITH YOUR PRIMARY CARE DOCTOR, CLINIC, OR SPECIALIST IN 1-2 DAYS. PLEASE CONTINUE TAKING YOUR ANTIBIOTICS Referrals: PCP,NO [Primary Care Provider] - Follow up with primary Guille Espinoza MD [Staff Provider] - Follow up with primary Forms: [employer] (Maltese)
[2017-03-19 12:38] VITALS: BP 110/72; PULSE 80; O2SAT 97
--- NOTE | 2017-03-19 12:41 | CP.PCM.CON ---
History of Present Illness - History of Present Illness History of Present Illness: Surgery: Dr. Espinoza CC: incision check HPI: 31 yo F evaluated in the ED for incisional pain s/p laparoscopic appendectomy POD #12. Pt evaluated in ED 03/16 for similar complaint, given keflex 500mg QID, and discharged with instructions to follow-up at ED in two days. Today, pt complaining of RLQ abdominal pain (improving since surgery) and pain around umbilical and LLQ incisions. Pt admits to applying hydrogen peroxide to incisions. Pt voiding, passing flatus, having BMs and tolerating diet well. No other complaints. Patient did not follow up post operatively in office due to personal conflict of schedule and understanding. ROS: denies fevers, chills, chest pain, SOB, n/v/d, dysuria, hematuria, incisional drainage. Review of Systems - Review of Systems All systems: reviewed and no additional remarkable complaints except Review of Systems: Unless stated in HPI. Past Patient History - Infectious Disease Hx of Infectious Diseases: None - Tetanus Immunizations Tetanus Immunization: Unknown - Past Social History Smoking Status: Never Smoked - CARDIAC Hx Cardiac Disorders: No - PULMONARY Hx Respiratory Disorders: No - NEUROLOGICAL Hx Neurological Disorder: No - HEENT Hx HEENT Problems: No - RENAL Hx Chronic Kidney Disease: Yes Hx Kidney Stones: Yes - ENDOCRINE/METABOLIC Hx Endocrine Disorders: No - HEMATOLOGICAL/ONCOLOGICAL Hx Blood Disorders: No - INTEGUMENTARY Hx Dermatological Problems: No - MUSCULOSKELETAL/RHEUMATOLOGICAL Hx Musculoskeletal Disorders: No Hx Falls: No - GASTROINTESTINAL Hx Gastrointestinal Disorders: No - GENITOURINARY/GYNECOLOGICAL Hx Genitourinary Disorders: Yes Hx Urinary Tract Infection: Yes Other/Comment: Kidney Infection 3 years ago - PSYCHIATRIC Hx Psychophysiologic Disorder: No Hx Depression: No Hx Emotional Abuse: No Hx Physical Abuse: No Hx Substance Use: No - SURGICAL HISTORY Hx Appendectomy: Yes Other/Comment: Tubal Ligation - ANESTHESIA Hx Anesthesia: Yes Hx Anesthesia Reactions: No Hx Malignant Hyperthermia: No Meds Allergies/Adverse Reactions: Allergies Allergy/AdvReac Type Severity Reaction Status Date / Time No Known Allergies Allergy Verified 03/19/17 10:32 Physical Exam - Constitutional Appears: Non-toxic, No Acute Distress - Head Exam Head Exam: ATRAUMATIC, NORMOCEPHALIC - Eye Exam Eye Exam: EOMI. absent: Conjunctival injection - ENT Exam ENT Exam: Mucous Membranes Moist - Neck Exam Neck exam: Positive for: Full Rom - Respiratory Exam Respiratory Exam: NORMAL BREATHING PATTERN. absent: Accessory Muscle Use - Cardiovascular Exam Cardiovascular Exam: absent: Bradycardia, Tachycardia - GI/Abdominal Exam GI & Abdominal Exam: Soft, Tenderness. absent: Distended, Guarding, Rebound, Rigid Additional comments: mild ttp RLQ, incisions intact, clean and dry, covered with dried glue, minimal surround erythema without underlying fluctuance or induration; - Extremities Exam Extremities exam: Positive for: normal inspection. Negative for: pedal edema - Neurological Exam Neurological exam: Alert, CN II-XII Intact, Normal Gait, Oriented x3 - Psychiatric Exam Psychiatric exam: Normal Affect, Normal Mood - Skin Skin Exam: Dry, Intact, Normal Color, Warm Results - Vital Signs Recent Vital Signs: Last Vital Signs Temp 97.9 F 03/19/17 10:35 Pulse 88 03/19/17 10:35 Resp 18 03/19/17 10:35 BP 116/77 03/19/17 10:35 Pulse Ox 98 03/19/17 10:35 Assessment & Plan - Assessment and Plan (Free Text) Assessment: 31 yo F s/p laparoscopic appendectomy POD #12 evaluated for incisional pain. Plan: -no evidence of cellulitis, seroma, or abscess around or near incisions -CT scan from 03/16 showed no acute pathology intra-abdominal or subcutaneous -continue keflex 500mg QID for remainder of 7 day course since already on day 2 -f/u with Dr. Espinoza in outpatient office prn -d/c hydrogen peroxide use on incision sites, use only soap and water to clean incisions -d/w ER attending regarding plan -d/w Dr. Espinoza [facility] PGY3 - Date & Time Date: 03/19/17 Time: 12:30
== END 2017-03-19 12:38 | disposition home or self-care (01) ==
LOC: ED 10:28
DX: Z51.89 Encounter for other specified aftercare (principal)

== ENCOUNTER 2018-09-19 09:20 | Outpatient (CLI) | payer OTHER | END 2018-09-19 09:21 | disposition home or self-care (01) | LOC: LAB 09:20 ==

== ENCOUNTER 2018-09-22 10:40 | Outpatient (CLI) | payer OTHER | END 2018-09-22 10:41 | disposition home or self-care (01) | LOC: RAD 10:40 ==

== ENCOUNTER → 2018-12-02 | Outpatient (CLI) | payer OTHER | LOC: LAB 10:07 ==